=== PATIENT | female | born 1990 | race Caucasian/White ===

== ENCOUNTER 2016-12-18 15:16 | Emergency (ER) | payer MEDICAID ==
--- NOTE | 2016-12-18 15:39 | EDM.PDOC ---
ED HPI GENERAL MEDICAL PROBLEM - General Chief Complaint: Lower Extremity Injury/Pain Stated Complaint: SWOLLEN RT KNEE AND IN PAIN Time Seen by Provider: 12/18/16 15:38 Source of Information: Reports: Patient History Limitations: Reports: No Limitations - History of Present Illness INITIAL COMMENTS - FREE TEXT/NARRATIVE: History of present illness: [26-year-old female comes in complaining of right knee pain. Patient indicates it is increasingly more painful and she finds it difficulty walking up 3 flights of stairs.] Review of systems: As per history of present illness and below otherwise all systems reviewed and negative. Past medical history: As per history of present illness and as reviewed below otherwise noncontributory. Surgical history: As per history of present illness and as reviewed below otherwise noncontributory. Social history: No reported history of drug or alcohol abuse. Family history: As per history of present illness and as reviewed below otherwise noncontributory. Physical exam: HEENT: Atraumatic, normocephalic, pupils reactive, negative for conjunctival pallor or scleral icterus, mucous membranes moist, throat clear, neck supple, nontender, trachea midline. Lungs: Clear to auscultation, breath sounds equal bilaterally, chest nontender. Heart: S1S2, regular, negative for clicks, rubs, or JVD. Abdomen: Soft, nondistended, nontender. Negative for masses or hepatosplenomegaly. Negative for costovertebral tenderness. Pelvis: Stable nontender. Genitourinary: Deferred. Rectal: Deferred. Extremities: Atraumatic, no crepitus noted in the right knee on exam nor tenderness to palpation, negative for cords or calf pain. Neurovascular unremarkable. Neuro: Awake, alert, oriented. Cranial nerves II through XII unremarkable. Cerebellum unremarkable. Motor and sensory unremarkable throughout. Exam nonfocal. All assessment is benign save is noted in the subjective complaint. Extremity showing a slight effusion Diagnostics: [X-ray right knee] Therapeutics: [] Impression: [Knee pain] Plan: [Referral to ortho, meloxicam] Definitive disposition and diagnosis as appropriate pending reevaluation and review of above. right knee Pain Score (Numeric/FACES): 6 - Related Data Allergies Allergy/AdvReac Type Severity Reaction Status Date / Time No Known Allergies Allergy Verified 12/18/16 15:27 Home Meds: Home Meds Emtricitab/Rilpivirine/Tenofov [Complera] 1 tab PO DAILY 12/18/16 [History] Review of Systems - Review of Systems Review Of Systems: See Below (The history of present illness) ED EXAM, GENERAL - Physical Exam Exam: See Below (See history of present illness) Course - Vital Signs Last Recorded V/S: Last Vital Signs Temp 36.6 C 12/18/16 15:30 Pulse 77 12/18/16 15:30 Resp 16 12/18/16 15:30 BP 121/72 12/18/16 15:30 Pulse Ox 97 12/18/16 15:30 - Orders/Labs/Meds Orders: Active Orders 24 hr Category Date Time Status Knee 3V Rt [CR] Stat Exams 12/18/16 15:36 Taken Departure - Departure Time of Disposition: 16:09 Disposition: Home, Self-Care 01 Condition: Good Clinical Impression: Knee pain - Discharge Information Forms: ED Department Discharge Additional Instructions: The following information is given to patients seen in the emergency department who are being discharged to home. This information is to outline your options for follow-up care. We provide all patients seen in our emergency department with a follow-up referral. The need for follow-up, as well as the timing and circumstances, are variable depending upon the specifics of your emergency department visit. If you don't have a primary care physician on staff, we will provide you with a referral. We always advise you to contact your personal physician following an emergency department visit to inform them of the circumstance of the visit and for follow-up with them and/or the need for any referrals to a consulting specialist. The emergency department will also refer you to a specialist when appropriate. This referral assures that you have the opportunity for follow-up care with a specialist. All of these measure are taken in an effort to provide you with optimal care, which includes your follow-up. Under all circumstances we always encourage you to contact your private physician who remains a resource for coordinating your care. When calling for follow-up care, please make the office aware that this follow-up is from your recent emergency room visit. If for any reason you are refused follow-up, please contact the [facility] Emergency Department at and asked to speak to the emergency department charge nurse. Take medication as directed Continue to wear your brace, you may ice your knee or place heat on it no longer than 20 minutes at a time keep it elevated as much as possible Follow-up with Ortho as recommended return to ED as needed as discussed [facility] [address] [place] [id number] [facility] [address] [place] [address], [address] [place] [address] - My Orders Last 24 Hours: My Active Orders 12/18/16 15:36 Knee 3V Rt [CR] Stat - Assessment/Plan Last 24 Hours: My Active Orders 12/18/16 15:36 Knee 3V Rt [CR] Stat
[2016-12-18 16:23] VITALS: BP 124/74
--- NOTE | 2016-12-21 09:43 | CR ---
EXAM DATE: 12/18/16 PATIENT'S AGE: 26 Patient: JESSICA QUIROS Facility: [place], [place] Site . Site : 1990 Study: XRay Knee [id number]/14/2017 3:59:36 PM Ordering Physician: Doctor Whaley Final Report: HISTORY: Pain. FINDINGS: Three views of the right knee demonstrates normal bone mineralization. There is normal alignment present. Small suprapatellar joint is present. No fracture or dislocation. IMPRESSION: Small suprapatellar joint effusion without acute bony abnormality. Dictated by Essence Taveras MD @ 12/18/2016 4:03:28 PM Dictated by: Essence Taveras MD @ 12/18/2016 16:03:42 (Electronic Signature) Report Signed by Proxy. MTDShaka
== END 2016-12-18 16:26 | disposition home or self-care (01) ==
LOC: MW.ED 15:16
DX: M25.561 Pain in right knee (principal); Z79.899 Other long term (current) drug therapy
CPT/HCPCS: 73562-26-RT; 73562-RT; 99282; 99283

== ENCOUNTER 2016-12-28 21:32 | Emergency (ER) | payer MEDICAID ==
--- NOTE | 2016-12-28 22:42 | EDM.PDOC ---
ED HPI GENERAL MEDICAL PROBLEM - General Chief Complaint: Lower Extremity Injury/Pain Stated Complaint: PAIN HIP Time Seen by Provider: 12/28/16 22:31 - History of Present Illness INITIAL COMMENTS - FREE TEXT/NARRATIVE: HISTORY AND PHYSICAL: History of present illness: The patient is a 26-year-old female who is a 4 and is occipitally 16 weeks by dates with her and comes in complaining of left hip pain has been ongoing for the last couple of days. The patient said she did a lot of traveling recently sitting on a plane and in a car/bus and thought maybe it was because of that. She says as achy and certain positions and movements will make it worse. She did not fall or hit into it and she has no neurosensory changes in her legs . The patient has no midline back pain no abdominal pain and has had movements. She has no vaginal bleeding nausea or vomiting. The patient has no radiation of the pain except from the lateral hip down the side of her thigh. She is not taking anything for the pain. Patient has no urinary complaints. Patient is no bowel or bladder disturbances Review of systems: As per history of present illness and below otherwise all systems reviewed and negative. Past medical history: As per history of present illness and as reviewed below otherwise noncontributory. Surgical history: As per history of present illness and as reviewed below otherwise noncontributory. Social history: No reported history of drug or alcohol abuse. Family history: As per history of present illness and as reviewed below otherwise noncontributory. Physical exam: Gen.: Well-developed well-nourished female who is nontoxic HEENT: Atraumatic, normocephalic, negative for conjunctival pallor or scleral icterus, mucous membranes moist, throat clear, neck supple, nontender, trachea midline. Lungs: Clear to auscultation, breath sounds equal bilaterally, chest nontender. Heart: S1S2, regular rate and rhythm no overt murmurs Abdomen: Soft, nondistended, nontender. NABS Negative for costovertebral tenderness. Pelvis: Stable nontender. There is some mild tenderness at the lateral hip but there is no joint fullness and no thigh tenderness. There are no bony deformities in the hip or the left lower extremity. Genitourinary: Deferred. Rectal: Deferred. Extremities: Atraumatic, negative for cords or calf pain. Neurovascular unremarkable. Neuro: Awake, alert, oriented. Cranial nerves II through XII unremarkable. Cerebellum unremarkable. Motor and sensory unremarkable throughout. Exam nonfocal. Back: There are no midline step-offs in his defects of the thoracic or lumbar spine and no posterior pelvis tenderness. Diagnostics: [] Therapeutics: [] I discussed with the patient that we would treat this conservatively with over- the-counter Tylenol and I recommended stretching and follow-up with her OB M.D. At this point an x-ray would be not be indicated due to her and she has had no trauma to the area. She is comfortable with that. I told her there could be some component of sciatica which she could discuss further care with her OB M.D. Impression: Left hip pain Definitive disposition and diagnosis as appropriate pending reevaluation and review of above. left leg Pain Score (Numeric/FACES): 7 - Related Data Allergies Allergy/AdvReac Type Severity Reaction Status Date / Time No Known Allergies Allergy Verified 12/28/16 22:13 Home Meds: Home Meds Emtricitab/Rilpivirine/Tenofov [Complera] 1 tab PO DAILY 12/18/16 [History] Past Medical History - Past Health History Medical/Surgical History: Denies Medical/Surgical History HEENT History: Reports: None Cardiovascular History: Reports: None Respiratory History: Reports: None Gastrointestinal History: Reports: None Genitourinary History: Reports: None [employer] History: Reports: Musculoskeletal History: Reports: None Neurological History: Reports: None Psychiatric History: Reports: Anxiety, Bipolar, Depression Endocrine/Metabolic History: Reports: None Dermatologic History: Reports: None - Infectious Disease History Infectious Disease History: Reports: Chicken Pox - Past Surgical History HEENT Surgical History: Reports: Tonsillectomy Female Surgical History: Reports: Section Social & Family History - Family History Family Medical History: Noncontributory - Tobacco Use Smoking Status *Q: Current Every Day Smoker Years of Tobacco use: 6 Packs/Tins Daily: 0.5 - Recreational Drug Use Recreational Drug Use: No Review of Systems - Review of Systems Review Of Systems: ROS reveals no pertinent complaints other than HPI. ED EXAM, GENERAL - Physical Exam Exam: See Below (See dictation) Course - Vital Signs Last Recorded V/S: Last Vital Signs Temp 36.2 C 07/24/17 22:14 Pulse 80 12/28/16 22:14 Resp 18 12/28/16 22:14 BP 116/66 12/28/16 22:14 Pulse Ox 100 12/28/16 22:14 Departure - Departure Time of Disposition: 22:42 Disposition: Home, Self-Care 01 Condition: Good Clinical Impression: Left hip pain - Discharge Information Forms: ED Department Discharge Additional Instructions: The following information is given to patients seen in the emergency department who are being discharged to home. This information is to outline your options for follow-up care. We provide all patients seen in our emergency department with a follow-up referral. The need for follow-up, as well as the timing and circumstances, are variable depending upon the specifics of your emergency department visit. If you don't have a primary care physician on staff, we will provide you with a referral. We always advise you to contact your personal physician following an emergency department visit to inform them of the circumstance of the visit and for follow-up with them and/or the need for any referrals to a consulting specialist. The emergency department will also refer you to a specialist when appropriate. This referral assures that you have the opportunity for followup care with a specialist. All of these measure are taken in an effort to provide you with optimal care, which includes your followup. Under all circumstances we always encourage you to contact your private physician who remains a resource for coordinating your care. When calling for followup care, please make the office aware that this follow-up is from your recent emergency room visit. If for any reason you are refused follow-up, please contact the [facility] emergency department at and ask to speak to the emergency department charge nurse. [facility] [address] [place] [address] [place] [address] Please follow-up with your OB Balta., , for further care and evaluation. Use [id number] Tylenol for pain and apply ice or heat as needed for discomfort. Try to stretch and open up the area as we discussed and return to ER as needed and as discussed.
== END 2016-12-28 23:06 | disposition home or self-care (01) ==
LOC: MW.ED 21:32
CPT/HCPCS: 99283